=== PATIENT | female | born 1940 | race Caucasian/White ===

== ENCOUNTER 2020-09-11 20:14 | Inpatient (IN) | payer MEDICARE ==
[~2020-09-11] VITALS: Ht 152.4 cm; Wt 46.3 kg
[2020-09-11 21:20] LABS: HEMOGLOBIN 12.1 gm/dl (12.3-15.3); RED BLOOD COUNT 4.19 M/UL (4.00-5.10)
[2020-09-11 21:48] LABS: BUN/CREATININE RATIO 27 (0-10)
[2020-09-12] MEDS ORDERED: COREG 25MG TAB25 MG PO (00:28)
[2020-09-12] MEDS ORDERED: ELIQUIS2.5 MG PO (00:29)
[2020-09-12] MEDS ORDERED: OMEPRAZOLE40 MG PO (09:50)
[2020-09-13 10:14] LABS: HBSAG SCREEN Negative (Negative); HEP A AB, IGM Negative (Negative); HEP B CORE AB, IGM Negative (Negative); HEP C VIRUS AB <0.1 (0.0-0.9)
[2020-09-15 07:27] LABS: BUN/CREATININE RATIO 19 (0-10)
[2020-09-15 11:12] LABS: HEMOGLOBIN 11.7 gm/dl (12.3-15.3); RED BLOOD COUNT 4.21 M/UL (4.00-5.10); WHITE BLOOD COUNT 18.9 K/UL (4.5-11.0)
[2020-09-15 11:30] LABS: BUN/CREATININE RATIO 16 (0-10)
--- NOTE | 2020-09-15 13:54 | NUR ---
PT OXYGEN SAT AFTER ACTIVITY WAS 87% ON [place]OMA[place]
[2020-09-29] MEDS ORDERED: ITRACONAZOLE100 MG PO (00:28)
== END 2020-09-15 17:46 | disposition home or self-care (01) | DRG 444 ==
LOC: ER1 20:14 → CDU 09-12 → MED SURG 4 09-12 → CDU 09-12 00:01 → MED SURG 4 09-12 17:07
PROVIDERS: Family Medicine; Internal Medicine; Surgery; ADMIT Internal Medicine
DX: K80.10 Calculus of gallbladder with chronic cholecystitis without obstruction (principal); E43 Unspecified severe protein-calorie malnutrition; K50.90 Crohn's disease, unspecified, without complications; Z68.1 Body mass index [BMI] 19.9 or less, adult; K31.89 Other diseases of stomach and duodenum; R91.8 Other nonspecific abnormal finding of lung field; I25.10 Atherosclerotic heart disease of native coronary artery without angina pectoris; R16.0 Hepatomegaly, not elsewhere classified; Z79.01 Long term (current) use of anticoagulants; I48.91 Unspecified atrial fibrillation; B39.9 Histoplasmosis, unspecified; Z86.16 Personal history of COVID-19; R94.5 Abnormal results of liver function studies; Z28.21 Immunization not carried out because of patient refusal; K52.89 Other specified noninfective gastroenteritis and colitis; Z20.822 Contact with and (suspected) exposure to COVID-19
CPT/HCPCS: 36415; 36600; 71045; 76705; 80048; 80053; 80074; 81001; 82550; 82553; 82803; 83605; 83690; 83735; 83874; 83880; 84100; 84484; 85025; 85027; 86140; 87040; 93005; 94640; 94760; 96365; 96375; 96376; 99285; C9113; G0008; J1650; J1940; J2543; Q9967; U0002

== ENCOUNTER 2020-09-30 23:17 | Inpatient (IN) | payer MEDICARE ==
[~2020-09-30] VITALS: Ht 152.4 cm; Wt 54.1 kg
[~2020-09-30 23:17] MED LIST: COREG 25MG TAB25 MG PO; ELIQUIS2.5 MG PO; ITRACONAZOLE100 MG PO; OMEPRAZOLE40 MG PO
[2020-10-01 00:05] LABS: HEMOGLOBIN 12.7 gm/dl (12.3-15.3); RED BLOOD COUNT 4.32 M/UL (4.00-5.10); WHITE BLOOD COUNT 24.7 K/UL (4.5-11.0)
[2020-10-01 00:19] LABS: BUN/CREATININE RATIO 22 (0-10)
[2020-10-01] MEDS ORDERED: LISINOPRIL20 MG PO (00:30)
[2020-10-01 06:02] LABS: HEMOGLOBIN 11.3 gm/dl (12.3-15.3); RED BLOOD COUNT 3.87 M/UL (4.00-5.10); WHITE BLOOD COUNT 20.8 K/UL (4.5-11.0)
[2020-10-01 06:26] LABS: BUN/CREATININE RATIO 23 (0-10)
[2020-10-01] MEDS ORDERED: VOLTAREN ARTHRI20 GM TOP (11:35)
[2020-10-02 03:52] LABS: HEMOGLOBIN 10.4 gm/dl (12.3-15.3); RED BLOOD COUNT 3.6 M/UL (4.00-5.10); WHITE BLOOD COUNT 19.2 K/UL (4.5-11.0)
[2020-10-02 04:07] LABS: BUN/CREATININE RATIO 21 (0-10)
[2020-10-03 06:30] LABS: HEMOGLOBIN 10.7 gm/dl (12.3-15.3); RED BLOOD COUNT 3.68 M/UL (4.00-5.10); WHITE BLOOD COUNT 19.4 K/UL (4.5-11.0)
[2020-10-03 07:05] LABS: BUN/CREATININE RATIO 25 (0-10)
[2020-10-04 02:34] LABS: HEMOGLOBIN 10.5 gm/dl (12.3-15.3); RED BLOOD COUNT 3.65 M/UL (4.00-5.10); WHITE BLOOD COUNT 22.8 K/UL (4.5-11.0)
[2020-10-04 02:52] LABS: BUN/CREATININE RATIO 31 (0-10)
[2020-10-05 03:05] LABS: HEMOGLOBIN 10.6 gm/dl (12.3-15.3); RED BLOOD COUNT 3.65 M/UL (4.00-5.10)
[2020-10-05 03:24] LABS: BUN/CREATININE RATIO 31 (0-10)
[2020-10-06 05:28] LABS: HEMOGLOBIN 10.5 gm/dl (12.3-15.3); RED BLOOD COUNT 3.58 M/UL (4.00-5.10); WHITE BLOOD COUNT 22.2 K/UL (4.5-11.0)
[2020-10-06 05:39] LABS: BUN/CREATININE RATIO 32 (0-10)
[2020-10-07 03:45] LABS: HEMOGLOBIN 10.7 gm/dl (12.3-15.3); RED BLOOD COUNT 3.7 M/UL (4.00-5.10); WHITE BLOOD COUNT 22.5 K/UL (4.5-11.0)
[2020-10-07 04:03] LABS: BUN/CREATININE RATIO 41 (0-10)
[2020-10-07] MEDS ORDERED: FLORANEX GRANU1 EACH PO (11:20)
[2020-10-07] MEDS ORDERED: LASIX40 MG PO (11:20)
--- NOTE | 2020-10-07 14:19 | NUR ---
I REVIEWED MRS GONZALEZ'S HISTORY AND CHART, SHE IS AWAITING A RIDE HOME AND HAS HOME O2 PRN HS, SHE IS NO ACUTE DISTRESS AND NOHTING NEW TO REPORT.
== END 2020-10-07 14:18 | disposition home health service (06) | DRG 291 ==
LOC: ER1 23:17 → PROG CARE 10-01 02:56 → CDU 10-01 02:56 → PROG CARE 10-01 02:56 → M/S 10-01 17:37
PROVIDERS: Emergency Medicine; Internal Medicine; Physician Assistant Medical; ADMIT Internal Medicine Infectious Disease
PROC: B24BZZ4 Ultrasonography of Heart with Aorta, Transesophageal (ICD-10-PCS; principal; 2020-10-01)
DX: I11.0 Hypertensive heart disease with heart failure (principal); J96.21 Acute and chronic respiratory failure with hypoxia; I48.20 Chronic atrial fibrillation, unspecified; K50.90 Crohn's disease, unspecified, without complications; B40.9 Blastomycosis, unspecified; I50.33 Acute on chronic diastolic (congestive) heart failure; E87.6 Hypokalemia; Z20.822 Contact with and (suspected) exposure to COVID-19; B39.9 Histoplasmosis, unspecified; K81.9 Cholecystitis, unspecified; I25.10 Atherosclerotic heart disease of native coronary artery without angina pectoris; I08.3 Combined rheumatic disorders of mitral, aortic and tricuspid valves; R53.81 Other malaise; I15.8 Other secondary hypertension; I48.0 Paroxysmal atrial fibrillation; Z79.01 Long term (current) use of anticoagulants
CPT/HCPCS: ECHO; 36415; 71045; 71046; 80048; 80053; 81001; 82550; 82553; 83605; 83690; 83735; 83874; 83880; 84100; 84484; 85025; 85027; 85610; 85730; 86140; 87040; 93005; 93306; 94760; 96365; 96374; 96375; 96376; 97110-GP-CQ; 97116; 97116-GP-CQ; 97161; 97530; 99285; G0378; J1940; U0002